=== PATIENT | male | born 2005 | race Caucasian/White ===

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

== ENCOUNTER 2025-06-30 17:32 | Emergency (ER) | payer OTHER ==
[~2025-06-30] VITALS: Ht 180.3 cm; Wt 52.9 kg
[2025-06-30 18:16] LABS: BASO # 0.1 10^3/uL (0.0-0.2); BASO % 0.8 % (0.0-1.0); EOS # 0.1 10^3/uL (0.0-0.5); EOS % 0.8 % (0.0-3.0); LYMPH # 2.6 10^3/uL (1.5-5.0); LYMPH % 27.5 % (24.0-44.0); MONO # 0.8 10^3/uL (0.0-0.8); MONO % 8.8 % (2.0-8.0); NEUTROPHILS # 5.8 10^3/uL (1.5-8.5); NEUTROPHILS % 61.9 % (36.0-66.0); PLATELET COUNT, AUTOMATED 210 10^3/uL (150-450)
[2025-06-30] MEDS ORDERED: ISOVUE-370 76% 100 ML VIAL As Ordered ONE (18:20)
[2025-06-30 18:29] LABS: INR 1.0
[2025-06-30] MEDS: FAMOTIDINE 20 MG/2 ML VIAL IVP ONE (18:35)
[2025-06-30] MEDS: ONDANSETRON 4MG 2ML VIAL IV ONE (18:35)
[2025-06-30] MEDS: NS (Normal Saline) 0.9% 1,000 ML IV ONE (18:35)
[2025-06-30 18:52] LABS: ALT/SGPT 32 U/L (7.0-40); AST/SGOT 27 U/L (<34); CALCIUM LEVEL 9.8 MG/DL (8.5-10.1); CARBON DIOXIDE LEVEL 28 MMOL/L (20-31); CHLORIDE LEVEL 103 MMOL/L (98-107); CK-MB VALUE MASS 1.7 NG/ML (<3.6); CREATININE FOR GFR 0.73 MG/DL (0.70-1.30); GLOMERULAR FILTRATION RATE > 90.0 (>60); POTASSIUM SERUM 3.8 MMOL/L (3.5-5.1); SODIUM LEVEL 141 MMOL/L (136-145)
[2025-06-30 18:53] LABS: CPK CREATINE PHOSPHOKINASE 113 U/L (46-171); MB/CK RELATIVE INDEX 1.50 (< OR =4)
[2025-06-30] MEDS: MAGNESIUM CITRATE 300 ML BTL PO ONE (19:05)
[2025-06-30 19:51] LABS: CK-MB VALUE MASS 1.3 NG/ML (<3.6)
[2025-06-30 19:54] LABS: CPK CREATINE PHOSPHOKINASE 89.0 U/L (46-171); MB/CK RELATIVE INDEX 1.46 (< OR =4)
[2025-06-30 20:02] VITALS: BP 112/71; TEMP 96.8; O2SAT 98
== END 2025-06-30 20:56 | disposition home or self-care (01) ==
LOC: M ED 17:32
DX: K59.00 Constipation, unspecified (principal); R10.9 Unspecified abdominal pain
CPT/HCPCS: 71046; 74177; 80047; 80048; 80076; 82550; 82553; 83605; 83690; 84484; 85025; 85610; 85730; 93005; 93041; 96361; 96374; 99284; J1308; J2405; Q9967

== ENCOUNTER → 2025-08-26 | Outpatient (REF) | payer OTHER ==
[2025-08-26 18:36] LABS: PLATELET COUNT, AUTOMATED 228 10^3/uL (150-450)
[2025-08-26 18:44] LABS: ALT/SGPT 31 U/L (7.0-40); AST/SGOT 24 U/L (<34); CALCIUM LEVEL 9.6 MG/DL (8.5-10.1); CARBON DIOXIDE LEVEL 30 MMOL/L (20-31); CHLORIDE LEVEL 101 MMOL/L (98-107); CHOLESTEROL LEVEL 159 MG/DL (<200); CHOLESTEROL RISK RATIO 2.68 (<5); CREATININE FOR GFR 0.84 MG/DL (0.70-1.30); GLOMERULAR FILTRATION RATE > 90.0 (>60); LDL CHOLESTEROL 89.9 MG/DL (<100); NON-HDL-C 99.7 MG/DL; POTASSIUM SERUM 4.0 MMOL/L (3.5-5.1); SODIUM LEVEL 141 MMOL/L (136-145); TRIGLYCERIDES LEVEL 49 MG/DL (<150)
[2025-08-26 18:47] LABS: FREE T4 1.25 NG/DL (0.89-1.76)
== END ==
LOC: M SFHCPLAZ 09:01
PROVIDERS: ATTEND Family Medicine
DX: Z00.00 Encounter for general adult medical examination without abnormal findings (principal)